=== PATIENT | male | born 1965 | race Caucasian/White ===

== ENCOUNTER → 2020-11-17 | Outpatient (CLI) | payer BC, OTHER ==
[~2020-11-17] MED LIST: dilantin
== END ==
LOC: SLEEP 14:16
DX: G47.30 Sleep apnea, unspecified (principal)
CPT/HCPCS: 95811

== ENCOUNTER 2020-11-20 08:36 | Emergency (ER) | payer BC, OTHER ==
[2020-11-20 09:31] LABS: HEMOGLOBIN 16.6 gm/dl (14.0-17.5); RED BLOOD COUNT 5.24 M/UL (4.20-5.50); WHITE BLOOD COUNT 7.3 K/UL (4.5-11.0)
[2020-11-20 09:58] LABS: BUN/CREATININE RATIO 15 (0-10)
== END 2020-11-20 13:45 | disposition home or self-care (01) ==
LOC: ER1 08:36
PROVIDERS: Nurse Practitioner
DX: G40.909 Epilepsy, unspecified, not intractable, without status epilepticus (principal); S00.83XA Contusion of other part of head, initial encounter; Z88.8 Allergy status to other drugs, medicaments and biological substances; X58.XXXA Exposure to other specified factors, initial encounter
CPT/HCPCS: 70450; 71045; 80053; 80175; 80185; 80307; 81001; 85025; 93005; 99285; G0480

== ENCOUNTER 2021-02-20 16:37 | Emergency (ER) | payer BC ==
[2021-02-20 17:46] LABS: HEMOGLOBIN 16.4 gm/dl (14.0-17.5); RED BLOOD COUNT 5.08 M/UL (4.20-5.50); WHITE BLOOD COUNT 8.2 K/UL (4.5-11.0)
[2021-02-20 18:09] LABS: BUN/CREATININE RATIO 15 (0-10)
== END 2021-02-20 20:20 | disposition home or self-care (01) ==
LOC: ER1 16:37
PROVIDERS: Physician Assistant
DX: R56.9 Unspecified convulsions (principal)
CPT/HCPCS: 70450; 80053; 80185; 82550; 82553; 83735; 83874; 84484; 85025; 93005; 99285

== ENCOUNTER → 2021-03-12 | Outpatient (CLI) | payer BC, OTHER | LOC: EMI 11:00 | DX: R56.9 Unspecified convulsions (principal) | CPT/HCPCS: 70553; A9577 ==